=== PATIENT | male | born 1955 | race Caucasian/White ===

== ENCOUNTER 2017-01-04 08:57 | Outpatient (CLI) | payer BC ==
[~2017-01-04 08:57] MED LIST: ATORVASTATIN CA10 MG PO; CEPHALEXIN500 MG PO; DULCOLAX5 MG PO; FLAGYL500 MG PO; KEFLEX500 M1 PO; LEVEMIR FL100 UNIT/M SC; LISINOPRIL10 MG PO; MAG6464 MG PO; METFORMIN HCL500 MG PO; NOVOLOG PE100 UNITS/ SC; OXYCODONE/ACETA1 TA1 PO; POTASSIUM CHLO20 ME4 PO; TYLENOL ARTHRI650 MG PO
--- NOTE | 2017-01-04 12:43 | DIAGNOSTIC IMAGING REPORT ---
PROCEDURE: US VENOUS - LEFT EXT INDICATION: DIABETIC NON HEALING WOUND TECHNIQUE: Duplex sonography of the deep and superficial venous system in the left lower extremity was performed. Compression and augmentation techniques were used. The patient was scanned in the upright position. Surveillance of the venous system during Valsalva maneuver when appropriate was performed. COMPARISON: None. FINDINGS: Each interrogated segment of the deep vein demonstrates normal compressibility, augmentation, and normal color Doppler flow without filling defect. No thrombus in either greater saphenous or short saphenous vein. There is no venous reflux in the left common femoral, superficial femoral and greater saphenous veins. Left greater saphenous vein measures 5 mm proximally and 2.5 ml mid. Distal greater saphenous vein is not visualized. IMPRESSION: 1. No evidence of a left lower extremity DVT 2. No evidence of venous insufficiency in the left lower extremity.
--- NOTE | 2017-01-04 13:27 | DIAGNOSTIC IMAGING REPORT ---
PROCEDURE: US ART LOWER EXT WITH RAAD-LEFT INDICATION: DIABETIC NON HEALING WOUND TECHNIQUE: Preexercise ABIs were performed. Color Doppler duplex imaging of the left lower extremity was performed. COMPARISON: Bilateral lower extremity arterial duplex ultrasound 06/21/2015. FINDINGS: ABIs: Posterior tibial 0.7, dorsalis pedis 1.05. VESSELS: Moderate atherosclerosis. Normal triphasic wave form of the profunda femoris, otherwise biphasic wave form from the external iliac to the mid SFA and monophasic wave form of the distal SFA. There is biphasic wave form from the popliteal artery to the ankle but no proximal posterior tibial artery was not visualized. LEFT LOWER EXTREMITY PEAK SYSTOLIC VELOCITIES: External iliac: 65 cm/second. Common femoral artery: 60 cm/second. Profunda femoral artery: 64 cm/second. Proximal superficial femoral artery: 94 cm/second. Mid superficial femoral artery: 59 cm/second. Distal superficial femoral artery: 368 cm/second. Popliteal artery: 47 cm/second. Proximal posterior tibial artery: Not visualized Proximal anterior tibial artery: 37 cm/second. Distal posterior tibial artery: 20 cm/second. Dorsalis pedis artery: 47 cm/second. IMPRESSION: 1. ABIs indicative of trifurcation disease. Moderate atherosclerosis with new high-grade stenosis of the distal SFA. Nonvisualization of the proximal posterior tibial artery, possibly occluded.
== END 2017-01-04 23:00 ==
LOC: US SRH 08:57
DX: E11.622 Type 2 diabetes mellitus with other skin ulcer (principal); L97.829 Non-pressure chronic ulcer of other part of left lower leg with unspecified severity; I70.202 Unspecified atherosclerosis of native arteries of extremities, left leg